=== PATIENT | female | born 1970 | race American Indian/Alaskan Native ===

== ENCOUNTER 2019-02-14 11:20 | Emergency (ER) | payer OTHER ==
--- NOTE | 2019-02-14 11:42 | Emergency Department Report ---
Blank Doc - Documentation Documentation: 48 Y/O FEMALE WITH UNTREATED HTN PRESENTS C/O 1 DAY OF DIZZINESS ASSOCIATED WITH HEADACHE AND WORSEN WITH POSITION CHANGES. NO TRAUMA NOTED. NO CHEST PAIN. NO VISUAL CHANGES. NO FEVERK The patient was seen in triage for DIZZINESS Labs/imaging ordered to evaluate for a cause of this complaint. Vital signs reviewed, patient awake and alert in NAD.
[2019-02-14 12:44] LABS: Basophils % (Auto) 0.6 % (0.0-1.8); Eosinophils % (Auto) 0.5 % (0.0-4.3); Lymphocytes # (Auto) 1.3 K/mm3 (1.2-5.4); Lymphocytes % (Auto) 18.9 % (13.4-35.0); Mean Corpuscular HGB Conc 29 % (30-34); Monocytes # (Auto) 0.4 K/mm3 (0.0-0.8); Platelet Count 584 K/mm3 (140-440); Red Blood Count 4.15 M/mm3 (3.65-5.03)
[2019-02-14 13:04] LABS: Alanine Aminotransferase 16 units/L (7-56); BUN/Creatinine Ratio 13; Blood Urea Nitrogen 10 mg/dL (7-17); Calcium 8.8 mg/dL (8.4-10.2); Hemolysis Index 0
--- NOTE | 2019-02-14 13:07 | XRay Report ---
CHEST PA AND LATERAL VIEWS INDICATION: Lightheadedness/Dizziness. COMPARISON: None. FINDINGS: Support devices: None. Heart: Within normal limits. Lungs/Pleura: No acute pulmonary or pleural findings. There is mild scoliosis. IMPRESSION: 1. No significant abnormality. Signer Name: Alex Gilbert MD Signed: 02/14/2019 1:03 PM Workstation Name: [email or web address]
[2019-02-14 13:19] LABS: Hematocrit 25.5 % (30.3-42.9); Hemoglobin 7.4 gm/dl (10.1-14.3); Mean Corpuscular Volume 61 fl (79-97); Red Cell Distribution Width 22.3 % (13.2-15.2)
[2019-02-14] MEDS ORDERED: SODIUM CHLORIDE 0.9% 500 ML 500 ML IV ONE (14:28)
--- NOTE | 2019-02-14 14:47 | Emergency Department Report ---
ED Dizziness HPI - General Chief Complaint: Dizziness Stated Complaint: LIGHT HEADED/DIZZY Time Seen by Provider: 02/14/19 11:27 Source: patient Mode of arrival: Ambulatory Limitations: No Limitations - History of Present Illness Initial Comments: 48 YO COMES TO ER WITH DIZZINESS, SOB AND INTERMITTENT CP SINCE YESTERDAY. SHE HAS ANEMIA AND CURRENTLY ON HER PERIOD. PMH HTN FE DEF ANTEMIA LIFE CYCLE OB RX FE MOM AND DAD A/W PSH NONE PT STATES SHE HAS NEVER HAD SYMPTOMS LIKE THIS IN THE PAST AND IT CONCERNED HER MD Complaint: dizziness -: Gradual History of Same: No History of Trauma: No Severity: moderate Improves With: remaining still Worsens With: nothing Associated Symptoms: chest pain, shortness of breath - Related Data Allergies Allergy/AdvReac Type Severity Reaction Status Date / Time No Known Allergies Allergy Verified 02/14/19 11:26 ED Review of Systems ROS: Stated complaint: LIGHT HEADED/DIZZY Other details as noted in HPI Comment: All other systems reviewed and negative ED Past Medical Hx - Past Medical History Previous Medical History?: Yes Hx Hypertension: Yes Additional medical history: fe def anemia - Surgical History Past Surgical History?: No - Family History Family history: no significant - Social History Smoking Status: Never Smoker Substance Use Type: None ED Physical Exam - General Limitations: No Limitations General appearance: alert, in no apparent distress - Head Head exam: Present: atraumatic, normocephalic - Eye Eye exam: Present: normal appearance - ENT ENT exam: Present: mucous membranes moist - Neck Neck exam: Present: normal inspection - Respiratory Respiratory exam: Present: normal lung sounds bilaterally. Absent: respiratory distress - Cardiovascular Cardiovascular Exam: Present: regular rate, normal rhythm. Absent: systolic murmur, diastolic murmur, rubs, gallop - GI/Abdominal GI/Abdominal exam: Present: soft, normal bowel sounds - Extremities Exam Extremities exam: Present: normal inspection - Back Exam Back exam: Present: normal inspection - Neurological Exam Neurological exam: Present: alert, oriented X3 - Psychiatric Psychiatric exam: Present: normal affect, normal mood - Skin Skin exam: Present: warm, dry, intact, normal color. Absent: rash ED Course Vital Signs 02/14/19 02/14/19 02/14/19 11:27 16:45 16:51 Temperature 98.4 F 98.1 F 98.1 F Pulse Rate 81 71 67 Respiratory 16 18 18 Rate Blood Pressure 162/102 152/70 Blood Pressure 152/70 [Right] O2 Sat by Pulse 100 100 100 Oximetry 02/14/19 02/14/19 17:06 17:36 Temperature 98.3 F 98.8 F Pulse Rate 67 62 Respiratory 18 18 Rate Blood Pressure 151/79 153/84 Blood Pressure [Right] O2 Sat by Pulse 100 100 Oximetry ED Medical Decision Making - Lab Data Result diagrams: 02/14/19 14:37 02/14/19 12:15 - EKG Data Rate: normal - EKG Data When compared to previous EKG there are: no significant change Interpretation: no acute changes - Medical Decision Making Labs 02/14/19 02/14/19 02/14/19 12:15 12:15 14:37 WBC 7.0 RBC 4.15 Hgb 7.4 L Hct 25.5 L MCV 61 L MCH 18 L MCHC 29 L RDW 22.3 H Plt Count 584 H Lymph % (Auto) 18.9 [place] % (Auto) 5.0 Eos % (Auto) 0.5 Baso % (Auto) 0.6 Lymph # 1.3 [place] # 0.4 Eos # 0.0 Baso # 0.0 Seg Neutrophils % 75.0 H Seg Neutrophils # 5.3 Sodium 138 Potassium 3.9 Chloride 104.0 Carbon Dioxide 23 Anion Gap 15 BUN 10 Creatinine 0.8 Estimated GFR > 60 BUN/Creatinine Ratio 13 Glucose 80 Calcium 8.8 Iron TIBC Total Bilirubin 0.30 AST 20 ALT 16 Alkaline Phosphatase 78 Troponin T < 0.010 Total Protein 7.7 Albumin 4.0 Albumin/Globulin Ratio 1.1 Blood Type Antibody Screen Crossmatch 02/14/19 02/14/19 02/14/19 14:37 14:37 14:37 WBC 7.2 RBC 4.24 Hgb 7.5 L Hct 26.1 L MCV 62 L MCH 18 L MCHC 29 L RDW 21.6 H Plt Count 563 H Lymph % (Auto) 19.8 [place] % (Auto) 4.7 Eos % (Auto) 0.8 Baso % (Auto) 1.2 Lymph # 1.4 [place] # 0.3 Eos # 0.1 Baso # 0.1 Seg Neutrophils % 73.5 H Seg Neutrophils # 5.3 Sodium Potassium Chloride Carbon Dioxide Anion Gap BUN Creatinine Estimated GFR BUN/Creatinine Ratio Glucose Calcium Iron 17 L TIBC 470 H Total Bilirubin AST ALT Alkaline Phosphatase Troponin T Total Protein Albumin Albumin/Globulin Ratio Blood Type O POSITIVE Antibody Screen Negative Crossmatch See Detail Vital Signs 02/14/19 11:27 Temperature 98.4 F Pulse Rate 81 Respiratory 16 Rate Blood Pressure 162/102 O2 Sat by Pulse 100 Oximetry labs noted given chronic anemia plus her DUB - she is having cp and sob current menses pt does take Fe 1U RBC GIVEN IN ER VSS dc home with dc plan of care and pcp/ob follow up - Differential Diagnosis a/c anemia Critical care attestation.: If time is entered above; I have spent that time in minutes in the direct care of this critically ill patient, excluding procedure time. ED Disposition Clinical Impression: Heavy menses, Iron deficiency anemia Disposition: DC-01 TO HOME OR SELFCARE Is pt being admited?: No Does the pt Need Aspirin: No Condition: Stable Instructions: Iron Rich Diet (ED), Iron Deficiency Anemia (ED), Anemia (ED) Additional Instructions: continue your home iron see pcp romel and let him know you were here today for symptomatic anemia - your iron deficiency with your menses - made you have symptoms follow up with obgyn for evaluation referrals below Referrals: PRIMARY CARE, [Primary Care Provider] - 3-5 Days ROSELINE MONTEMAYOR MD [Staff Physician] - 3-5 Days DEBBIE ONTIVEROS MD [Staff Physician] - 3-5 Days Time of Disposition: 16:53
[2019-02-14 14:50] LABS: Basophils # (Auto) 0.1 K/mm3 (0.0-0.1); Basophils % (Auto) 1.2 % (0.0-1.8); Eosinophils # (Auto) 0.1 K/mm3 (0.0-0.4); Eosinophils % (Auto) 0.8 % (0.0-4.3); Lymphocytes # (Auto) 1.4 K/mm3 (1.2-5.4); Lymphocytes % (Auto) 19.8 % (13.4-35.0); Mean Corpuscular HGB Conc 29 % (30-34); Monocytes # (Auto) 0.3 K/mm3 (0.0-0.8); Monocytes % (Auto) 4.7 % (0.0-7.3); Platelet Count 563 K/mm3 (140-440); Red Blood Count 4.24 M/mm3 (3.65-5.03)
[2019-02-14 14:56] LABS: Hematocrit 26.1 % (30.3-42.9); Hemoglobin 7.5 gm/dl (10.1-14.3); Mean Corpuscular Volume 62 fl (79-97); Red Cell Distribution Width 21.6 % (13.2-15.2)
[2019-02-14 15:12] LABS: Iron 17 ug/dL (37-170); Total Iron Binding Capacity 470 mcg/dL (250-450)
[2019-02-14 18:07] VITALS: BP 163/89
== END 2019-02-14 18:30 | disposition home or self-care (01) ==
LOC: ED 11:20
DX: N92.0 Excessive and frequent menstruation with regular cycle (principal); D50.9 Iron deficiency anemia, unspecified; R42 Dizziness and giddiness; I10 Essential (primary) hypertension
CPT/HCPCS: 36415; 36430; 71046; 80053; 83550; 84484; 85025; 86850; 86900; 86901; 86920; 93005; 93010; 96360; 96361; 99284; J7040; P9016